=== PATIENT | female | born 1965 | race Caucasian/White ===

== ENCOUNTER → 2017-02-12 | Outpatient (CLI) | payer OTHER ==
--- NOTE | 2017-02-13 05:22 | PN ---
PROGRESS NOTE IN SLEEP CENTER I am seeing this patient in followup in regards to her obstructive sleep apnea. The patient is well known to me. She was diagnosed having severe symptomatic obstructive sleep apnea and she was found to have an AHI of 86. The patient was given BiPAP therapy at a pressure of 21/17 cm of water. She was very much committed to the use of the BiPAP; however, she was having difficulty with the higher pressure. I noted that the patient was initially given a Simplus full face mask and she was having considerable amount of air leaks around the mask. This problem was happening especially the patient's utilized pressure was very high. The patient is obese and she has significant crowding of the posterior pharynx and increased airway resistance. Based on this, I checked her BiPAP machine on several occasions and I lowered the BiPAP pressure down to 14/10 cm of water. She continues to have significant difficulties and I further lowered it down to 12/8 cm of water. I switched this patient's mask also and she is alternating between an AirFit F10 and a Simplus full face mask. I referred this patient for an ENT consultation for a UPPP that may help me utilize lower BiPAP pressures for treatment of JUAN FRANCISCO. The patient was seen by Dr. Richter and a CAT scan of the neck was done that showed abnormality in the parapharyngeal region with effacement of the fossa of the Rosenmuller bilaterally as well as thickening in the region of Waldeyer's ring. There was also a left-sided thyroid nodule and degenerative changes of the spine and emphysematous change in the lungs. Thyroid functions were within normal limits. The patient is being seen in follow-up today. Her current BiPAP pressure is 12 /8 cm of water. She is using her machine every night. She is snoring while on the machine and this is expected knowing that the patient is utilizing a much lower BiPAP pressure. However, she is compliant and she is using her BiPAP every night without any significant interruption. Based on the compliance data, she is using BiPAP 25 out of 30 days more than 4 hours and her average BiPAP use is 5.8 hours per night. Her leak factor is 10 L per minute and her AHI while on treatment is down to 37.8. As such, she is having some residual obstructive apneas, however, she has become much more compliant. Her current vitals are as follows: Her blood pressure is 151/70, pulse is 88, respirations 16 and her Zebulon score is at 9. The patient's body weight is at 188. GENERAL APPEARANCE: Calm, comfortable. HEENT: Short neck, crowding posterior pharynx. There is no goiter or neck mass. LUNGS: Clear to auscultation. HEART: Sounds are regular rate and rhythm. Normal S1, S2. No S3, no S4. No murmurs. ABDOMEN: Soft and nontender. EXTREMITIES: No edema. No cyanosis or clubbing. IMPRESSION: 1. Severe symptomatic obstructive sleep apnea with an AHI of 87. Difficulties with using BiPAP. Initial BiPAP pressure was 21/17. Currently it is down to 12/8 which improves her compliance yet she has significant residual obstructive sleep apnea events occurring. ENT evaluation was done. 2. Obesity. PLAN: 1. Continue following up with ENT in consideration for UPPP. 2. I increased the BiPAP pressure to 13/9 and ( ) to increase the pressure by 1 cm at a time for both EPAP and IPAP until I get down her AHI to a reasonably low level. She is compliant. She is not having major air leaks and treatment seems to be somewhat more successful compared to what it was a few months back. This is difficult case and will continue to follow and collaborate with ENT in regards to her treatment.
== END | disposition home or self-care (01) ==
LOC: SLEEP 15:58
PROVIDERS: ATTEND Internal Medicine Critical Care Medicine
DX: G47.33 Obstructive sleep apnea (adult) (pediatric) (principal); E66.9 Obesity, unspecified

== ENCOUNTER 2017-10-24 08:00 | Day surgery (SDC) | payer OTHER ==
[2017-10-23 08:25] VITALS: BMI 27.4
[~2017-10-24 08:00] MED LIST: LACTATED RINGERS 1,000 ML IV SCH
[2017-10-24 08:20] VITALS: RESP 16; TEMP 98.4
[2017-10-24] MEDS ORDERED: LIDOCAINE 1% 20 ML VIAL (10MG/ML) FOR IV START INTRADERMA ONE (08:24)
[2017-10-24] MEDS ORDERED: PROPOFOL 10 MG/ML 20 ML VIAL IV ONE (09:25)
[2017-10-24] MEDS ORDERED: LIDOCAINE 1% INJ 10MG/ML (20 ML MDV) ONE (09:25)
--- NOTE | 2017-10-24 09:38 | P.GSHP ---
History of Present Illness H&P Date: 10/24/17 Chief Complaint: Dysphagia, screening colonoscopy This is a 51-year-old female referred from Dr. Lizama. Patient presents today for EGD. She's had issues with dysphagia and some mild heartburn. She is also undergoing screening colonoscopy today. Past Medical History Past Medical History: Hyperlipidemia, Hypertension Additional Past Medical History / Comment(s): NEUROPATHY HANDS & FEET.,HX OF COLON POLYPS, NODULES ON VOCAL CORDS. STATES THEIR IS SOMETHING ON THE LEFT SIDE OF HER THROAT. PT STATES ENDOSCOPIES RESCHEDULED DUE TO "COLD"- DENIES ILLNESS NOW. History of Any Multi-Drug Resistant Organisms: None Reported Past Surgical History: Breast Surgery, Hysterectomy Additional Past Surgical History / Comment(s): LAPAROSCOPIC STOMACH SX X 2. BILAT BREAST IMPLANTS. EGD. COLONOSCOPY Past Anesthesia/Blood Transfusion Reactions: No Reported Reaction Past Psychological History: Anxiety, Depression Smoking Status: Former smoker Past Alcohol Use History: Daily Additional Past Alcohol Use History / Comment(s): QUIT SMOKING 01/11/15. USUALLY HAS 2-3 ALCOHOLIC DRINKS DAILY Past Drug Use History: Marijuana Additional Drug Use History / Comment(s): OCCASIONAL MARIJUANA - Past Family History Son(s) Family Medical History: Cancer Medications and Allergies Home Medications Medication Instructions Recorded Confirmed Type ALPRAZolam [Xanax] 0.25 mg PO HS PRN 09/24/17 10/24/17 History Atorvastatin [Lipitor] 10 mg PO HS 09/24/17 10/23/17 History Carvedilol [Coreg] 6.25 mg PO BID 09/24/17 10/23/17 History Escitalopram [Lexapro] 5 mg PO HS 09/24/17 10/23/17 History Lisinopril [Zestril] 10 mg PO DAILY 09/24/17 10/23/17 History Nortriptyline [Pamelor] 10 mg PO Q48H 10/23/17 10/24/17 History Allergies Allergy/AdvReac Type Severity Reaction Status Date / Time No Known Allergies Allergy Verified 10/23/17 08:17 Surgical - Exam Vital Signs Temp Pulse Resp BP Pulse Ox 98.4 F 75 16 141/97 96 10/24/17 08:17 10/24/17 08:17 10/24/17 08:17 10/24/17 08:17 10/24/17 08:17 - General well developed, no distress - Eyes PERRL - ENT normal pinna - Neck no masses - Respiratory normal expansion - Cardiovascular Rhythm: regular - Abdomen Abdomen: soft, non tender Assessment and Plan Assessment: GERD, dysphagia we'll perform EGD. We'll also perform screening colonoscopy.
--- NOTE | 2017-10-24 10:07 | P.OP ---
Date of Procedure: 10/24/17 Preoperative Diagnosis: Screening colonoscopy, dysphagia Postoperative Diagnosis: Mild antral gastritis No evidence of hiatal hernia Esophagitis Normal colon to splenic flexure, barium enema pending Procedure(s) Performed: EGD Colonoscopy Anesthesia: MAC Surgeon: Christiano Douglas Pathology: other (Antrum, esophagus) Condition: stable Disposition: PACU Description of Procedure: The patient's placed on the endoscopy table in the lateral position. She received IV sedation. The gastroscope placed oropharynx passed in the esophagus and into the stomach. Scope was then placed through the pylorus. The first and second portion of the duodenum appeared normal. Scope was then brought back the antrum this. Mildly inflamed. A biopsies performed. Scope was then retroflexed and the remainder of the stomach appeared normal. There was no significant hiatal hernia. The distal esophagus appeared Inflamed a biopsy performed. The proximal esophagus appeared normal. Scope was withdrawn for patient. Next digital rectal exam was performed which revealed no abnormalities. Flexible colonoscope was then placed patient anus and passed throughout the on. The scope E passed beyond the splenic flexure due to tortuosity the bowel. Several times made to maneuver the scope however this is possible. The scope was withdrawn remainder the descending and sigmoid colon appeared normal. Scope was then brought back the rectum and this appeared normal. Scope was withdrawn for patient. Patient was scheduled for a barium enema.
[2017-10-24 10:40] VITALS: BP 142/93; PULSE 75
--- NOTE | 2017-10-24 12:23 | FL ---
EXAMINATION TYPE: FL barium enema DATE OF EXAM: 10/24/2017 COMPARISON: NONE HISTORY: Incomplete colonoscopy. TECHNIQUE: A double contrast barium enema study is performed. 2 minutes 51 seconds of fluoroscopic t jerzy was utilized during procedure. 15 spot images are saved during procedure. 9 overhead films are ob tained after procedure. FINDINGS: Er Nurse view of the abdomen shows overall non-obstructive bowel gas pattern. Colon is successfully felt to cecum. Evaluation for polyps is suboptimal due to markedly redundant si gmoid colon making use of more rectal contrast to reach cecum . No evidence of any mass or obvious po lyp, obstructing or constricting lesion throughout the colon. No significant diverticular disease is noted. Appendix and terminal ileum were not refluxed or filled. IMPRESSION: Successful filling to cecum without constricting neoplasm.
== END 2017-10-24 10:50 | disposition home or self-care (01) ==
LOC: ORWHC2ENDO 08:00
PROVIDERS: ATTEND Surgery
DX: Z12.11 Encounter for screening for malignant neoplasm of colon (principal); K29.50 Unspecified chronic gastritis without bleeding; K20.9 Esophagitis, unspecified; Q43.8 Other specified congenital malformations of intestine; K64.9 Unspecified hemorrhoids; Z86.010 Personal history of colon polyps; J38.2 Nodules of vocal cords; E78.5 Hyperlipidemia, unspecified; I10 Essential (primary) hypertension; F41.9 Anxiety disorder, unspecified; F32.9 Major depressive disorder, single episode, unspecified; G47.33 Obstructive sleep apnea (adult) (pediatric); Z99.89 Dependence on other enabling machines and devices; J44.9 Chronic obstructive pulmonary disease, unspecified; E04.1 Nontoxic single thyroid nodule; Z87.891 Personal history of nicotine dependence; Z79.899 Other long term (current) drug therapy
CPT/HCPCS: 88305; 88342; 74270; 43239; J2001; J2704; G0104; 45378